=== PATIENT | female | born 1930 | race Caucasian/White ===

== ENCOUNTER 2016-04-01 16:32 | Emergency (ER) | payer OTHER ==
[2016-04-01 16:54] VITALS: BMI 33.5
--- NOTE | 2016-04-01 17:08 | PDOC ---
History of Present Illness - General History Source: Patient, EMS, Family Exam Limitations: No Limitations - History of Present Illness Initial Comments: 04/01/16 17:44 The patient is a 85 year old female brought via EMS and presenting with her family, with a significant past medical history of hypertension and alzhimers, who presents to the emergency department after a near syncope episode that occurred shortly before coming to the ED. The family states that the patient has also been experiencing diarrhea for the past couple of days. They note that the diarrhea is nonbloody in nature. The family notes that the patient was using the bathroom when she became lightheaded but did not loss consciousness. The family also notes that the patient had complained of abdominal pain prior to using the bathroom. During presentation the patient does not complaint of abdominal pain. The family reports that the patient has had contact with a couple of family members who have cold like symptoms. She denies numbness, tingling or weakness. The family also reports that the patient recently had a in the family and has been depressed. The patient denies chest pain, shortness of breath, headache and dizziness. Denies fever, chills, nausea, vomit and constipation. Denies dysuria, frequency , urgency and hematuria. Allergies: None Past surgical history: None reported Social history: No alcohol, tobacco or drug use reported <Ritchie Roberts - Last Filed: 04/01/16 18:14> - General History Source: Patient Exam Limitations: No Limitations <John Nance - Last Filed: 04/03/16 08:45> - General Chief Complaint: Syncope/Near Syncope Stated Complaint: SYNCOPE Time Seen by Provider: 04/01/16 16:37 Past History <Ritchie Roberts - Last Filed: 04/01/16 18:14> - Psycho/Social/Smoking Cessation Hx Suicidal Ideation: No Smoking History: Never smoked Drug/Substance Use Hx: No <John Nance - Last Filed: 04/03/16 08:45> - Past Medical History Allergies/Adverse Reactions: Allergies Allergy/AdvReac Type Severity Reaction Status Date / Time aspirin Allergy Verified 04/01/16 16:49 Home Medications: Ambulatory Orders Acetaminophen [Tylenol] 650 mg PO Q4H PRN #20 tablet 04/01/16 Amlodipine Besylate 5 mg PO ONCE 04/01/16 Furosemide 40 mg PO 04/01/16 Latanoprost 0.005 drop 04/01/16 Losartan Potassium 100 mg PO ONCE 04/01/16 Mag Hydrox/Al Hydrox/Simeth [Mylanta Suspension -] 30 ml PO Q6H PRN #1 bottle Meclizine HCl 25 mg PO PRN 04/01/16 Namenda Xr 14 mg PO ONCE 04/01/16 Nuedexta 20-10 mg Capsule 10 mg PO ONCE 04/01/16 Pravastatin Sodium 20 mg PO DAILY 04/01/16 Rivastigmine 04/01/16 Review of Systems - Review of Systems Able to Perform ROS?: Yes Comments:: 04/01/16 17:44 GENERAL/CONSTITUTIONAL: No fever or chills. No weakness. HEAD, EYES, EARS, NOSE AND THROAT: No change in vision. No ear pain or discharge. No sore throat. CARDIOVASCULAR: No chest pain or shortness of breath RESPIRATORY: No cough, wheezing, or hemoptysis. GASTROINTESTINAL: +Diarrhea. No nausea, vomiting, constipation. GENITOURINARY: No dysuria, frequency, or change in urination. MUSCULOSKELETAL: No joint or muscle swelling or pain. No neck or back pain. SKIN: No rash NEUROLOGIC: +Near syncope. No headache, vertigo, loss of consciousness, or change in strength/sensation. ENDOCRINE: No increased thirst. No abnormal weight change HEMATOLOGIC/LYMPHATIC: No anemia, easy bleeding, or history of blood clots. ALLERGIC/IMMUNOLOGIC: No hives or skin allergy. <Ritchie Roberts - Last Filed: 04/01/16 18:14> *Physical Exam - Vital Signs Last Vital Signs Temp Pulse Resp BP Pulse Ox 130/70 04/01/16 16:43 - Physical Exam Comments: 04/01/16 17:44 GENERAL: Awake, alert, in no acute distress HEAD: No signs of trauma, normocephalic, atraumatic EYES: PERRLA, EOMI, sclera anicteric, conjunctiva clear ENT: Auricles normal inspection, hearing grossly normal, nares patent, oropharynx clear without exudates. Moist mucosa NECK: Normal ROM, supple, no lymphadenopathy, JVD, or masses LUNGS: No distress, speaks full sentences, clear to auscultation bilaterally HEART: Regular rate and rhythm, normal S1 and S2, no murmurs, rubs or gallops, peripheral pulses normal and equal bilaterally. ABDOMEN: Soft, nontender, normoactive bowel sounds. No guarding, no rebound. No masses EXTREMITIES: Normal inspection, Normal range of motion, no edema. No clubbing or cyanosis. NEUROLOGICAL: Cranial nerves II through XII grossly intact. Normal speech, normal gait, no focal sensorimotor deficits SKIN: Warm, Dry, normal turgor, no rashes or lesions noted. <Ritchie Roberts - Last Filed: 04/01/16 18:14> - Vital Signs Last Vital Signs Temp Pulse Resp BP Pulse Ox 130/70 04/01/16 16:43 <John Nance - Last Filed: 04/03/16 08:45> Heart Score/ECG Review #1 ECG reviewed & interpreted by me at: 17:05 04/01/16 17:41 NSR 70 with 1st degree AV block, poor baseline V4-V5, no std/nael, occasioanl PVC , low voltage QRS, QTC 390 msec, no bruagda, no HOCM <John Nance - Last Filed: 04/03/16 08:45> ED Treatment Course - RADIOLOGY Radiograph Interpretation: 04/01/16 17:44 Chest X-Ray Reviewed by: Dr. Escobar Nolen Impression: No significant interval change or acute lung disease is present. <Ritchie Roberts - Last Filed: 04/01/16 18:14> - LABORATORY CBC & Chemistry Diagram: 04/01/16 19:25 04/01/16 21:40 - RADIOLOGY Radiology Studies Ordered: Category Date Time Status CHEST X-RAY PORTABLE* [RAD] Stat Radiology 04/01/16 17:00 Ordered <John Nance - Last Filed: 04/03/16 08:45> Medical Decision Making - Medical Decision Making 04/01/16 17:04 A portion of this note was written by my scribe, supervised by me. 85 year old female with past medical history of HTN, dementia presents with near syncope. Since yesterday, pt was feeling with flu-like symptoms. body aches , diarrhea, abdominal cramping. +sick contacts with family with similar symptoms. Was using toilet today to move bowels when she felt some abdominal cramping and felt lightheaded and nearly syncopized. Denies chest pain or SOB. Pt then returned back to baseline and denies any symptoms now. Denies traveling. I suspect that the patient likely had a combination of dehydration and vasovagal near syncope. Given age, will check ECG and labs including trop. Will give some IVF. Check UA. Will observe in ED. If patient remains asymptomatic and reports feeling well, will d/c with PMD follow up. 04/01/16 22:25 CBC, BMP 04/01/16 19:25 04/01/16 21:40 CMP Sodium 145 mmol/L (136-145) 04/01/16 21:40 Potassium 3.7 mmol/L (3.5-5.1) 04/01/16 21:40 Chloride 111 mmol/L (98-107) H 04/01/16 21:40 Carbon Dioxide 26 mmol/L (21-32) 04/01/16 21:40 Anion Gap 8 (8-16) 04/01/16 21:40 BUN 12 mg/dL (7-18) 04/01/16 21:40 Creatinine 1.6 mg/dL (0.55-1.02) H 04/01/16 21:40 Creat Clearance w eGFR 30.63 (>60) 04/01/16 21:40 Random Glucose 163 mg/dL (74-106) H D 04/01/16 21:40 Lactic Acid 1.780 mmol/L (0.4-2.0) 04/01/16 21:40 Calcium 8.8 mg/dL (8.5-10.1) 04/01/16 21:40 Total Bilirubin 0.2 mg/dL (0.2-1.0) D 04/01/16 21:40 AST 19 U/L (15-37) D 04/01/16 21:40 ALT 19 U/L (12-78) 04/01/16 21:40 Alkaline Phosphatase 136 U/L (45-117) H 04/01/16 21:40 Creatine Kinase 71 IU/L (26-192) 04/01/16 18:00 Troponin I < 0.02 ng/ml (0.00-0.05) 04/01/16 18:00 Total Protein 6.8 g/dl (6.4-8.2) 04/01/16 21:40 Albumin 3.4 g/dl (3.4-5.0) 04/01/16 21:40 Urine Test Results Urine Color Ltyellow 04/01/16 18:00 Urine Appearance Clear 04/01/16 18:00 Urine pH 6.0 (5.0-8.0) 04/01/16 18:00 Ur Specific [place] 1.011 (1.001-1.035) 04/01/16 18:00 Urine Protein Negative (NEGATIVE) 04/01/16 18:00 Urine Glucose (UA) Negative (NEGATIVE) 04/01/16 18:00 Urine Ketones Negative (NEGATIVE) 04/01/16 18:00 Urine Blood Negative (NEGATIVE) 04/01/16 18:00 Urine Nitrite Negative (NEGATIVE) 04/01/16 18:00 Urine Bilirubin Negative (NEGATIVE) 04/01/16 18:00 Ur Leukocyte Esterase Negative (NEGATIVE) 04/01/16 18:00 Bedside echocardiogram performed by fl demonstrates NO pericardial effusion. Pt's CMP was repeated twice. Creatinine was stable at 1.6. I had spoken with the patient's daughter fairly extensively. The patient was noted to have a persistently elevated creatinine. It is unclear if she has a history of chronic kidney disease. I initially had given 1.5 L of IV normal saline to see if this was prerenal. A repeat CMP and lactic acid was drawn. The lactic acid was normal but the creatinine remained persistent at 1.6. The patient was reassessed and she appears nontoxic, well, and tolerating quite a bit of oral fluids. I believe that the patient's near syncope is secondary to vasovagal and dehydration. I instructed the patient's daughter to bring the patient to Dr. Merrill's office tomorrow for the creatinine and for follow up. Return precautions given. They verbalize understanding and agrees with plan. <John Nance - Last Filed: 04/03/16 08:45> *DC/Admit/Observation/Transfer <Ritchie Roberts - Last Filed: 04/01/16 18:14> - Discharge Dispostion Admit: No <John Nance - Last Filed: 04/03/16 08:45> Diagnosis at time of Disposition: Dehydration Diarrhea Qualifiers: Diarrhea type: unspecified type Qualified Code(s): R19.7 - Diarrhea, unspecified - Discharge Dispostion Disposition: HOME Condition at time of disposition: Improved - Prescriptions Prescriptions: Mag Hydrox/Al Hydrox/Simeth [Mylanta Suspension -] 30 ml PO Q6H PRN #1 bottle PRN Reason: Abdominal Pain/Diarrhea Acetaminophen [Tylenol] 650 mg PO Q4H PRN #20 tablet PRN Reason: Pain - Referrals Referrals: Jaylen Merrill [Primary Care Provider] - - Patient Instructions Printed Discharge Instructions: DI for Dehydration -- Adult, Diarrhea, Chronic Renal Failure, What Can I Do About Kidney Disease? Additional Instructions: Bring a copy of the results to Dr. Merrill tomorrow. Your kidney function shows a Cr of 1.6, which may be chronic. Please drink plenty of fluids and rest. Take 650 mg tylenol every 4 hours as needed for fever. Take 30 cc of maalox every 6 hours as needed for abdominal pain/diarrhea. It may take several days before your symptoms improve. Print Language: BURKINAN
[2016-04-01] MEDS ORDERED: ACETAMINOPHEN 1000 MG/100 ML VIAL (NON FORMULARY) IVPB ONE (17:17)
[2016-04-01] MEDS ORDERED: SODIUM CHLORIDE 1,000 ML IV STA (17:17)
[2016-04-01] MEDS ORDERED: ACETAMINOPHEN INJECTION 100 ML IVPB ONE (17:24)
[2016-04-01 18:27] LABS: URINE APPEARANCE CLEAR; URINE BILIRUBIN NEGATIVE (NEGATIVE); URINE BLOOD NEGATIVE (NEGATIVE); URINE COLOR LTYELLOW; URINE GLUCOSE (UA) NEGATIVE (NEGATIVE); URINE KETONE NEGATIVE (NEGATIVE); URINE LEUK ESTERASE NEGATIVE (NEGATIVE); URINE NITRITE NEGATIVE (NEGATIVE); URINE PROTEIN NEGATIVE (NEGATIVE); URINE UROBILINOGEN NEGATIVE E.U./dl (0.2-1.0)
[2016-04-01 18:35] LABS: INR 1.01 (0.82-1.09); PROTHROMBIN TIME (PATIENT) 11.1 SEC (9.98-11.88)
[2016-04-01 18:38] LABS: ACTIVATED PTT 28.4 SECONDS (26.9-34.4)
[2016-04-01 18:55] LABS: ALBUMIN 4.1 g/dl (3.4-5.0); ANION GAP 9 (8-16); BILIRUBIN,TOTAL 0.5 mg/dL (0.2-1.0); CALCIUM 9.3 mg/dL (8.5-10.1); CO2 27 mmol/L (21-32); CREATININE 1.6 mg/dL (0.55-1.02); GLUCOSE,RANDOM 101 mg/dL (74-106); SGPT/ALT 22 U/L (12-78); TOT PROT 7.8 g/dl (6.4-8.2)
[2016-04-01 18:57] LABS: ALK PHOS 153 U/L (45-117); TROPONIN I < 0.02 ng/ml (0.00-0.05)
[2016-04-01 19:01] LABS: SGOT/AST 29 U/L (15-37)
[2016-04-01 19:34] LABS: BASOPHIL 0.8 % (0-2.0); EOSINOPHIL 0.6 % (0-4.5); MCH 31.7 pg (25.7-33.7); MCHC 32.5 g/dl (32.0-36.0); MEAN CELL VOLUME 97.7 fl (80-96); MEAN PLT VOLUME 10.4 fl (7.5-11.1); PLATELET COUNT 179 K/MM3 (134-434); RDW 14.7 % (11.6-15.6); WHITE BLOOD COUNT 8.5 K/mm3 (4.0-10.0)
[2016-04-01] MEDS ORDERED: SODIUM CHLORIDE 500 ML IV STA (19:39)
[2016-04-01 21:52] VITALS: BP 143/63; PULSE 80; TEMP 98.1
[2016-04-01 22:07] LABS: ALBUMIN 3.4 g/dl (3.4-5.0); BILIRUBIN,TOTAL 0.2 mg/dL (0.2-1.0); CALCIUM 8.8 mg/dL (8.5-10.1); CREATININE 1.6 mg/dL (0.55-1.02); TOT PROT 6.8 g/dl (6.4-8.2)
[2016-04-01] MEDS ORDERED: MAG HYDROX/AL HYDROX/SIMETH 30 ML UNIT-DOSE CUP PO ONE (22:24)
[2016-04-01] MEDS ORDERED: RANITIDINE HCL 150 MG TABLET (FP) PO ONE (22:25)
[2016-04-01] MEDS ORDERED: MAG HYDROX/AL HYDROX/SIMETH 30 ML UNIT-DOSE CUP ONE (22:27)
[2016-04-01] MEDS ORDERED: RANITIDINE HCL 150 MG TABLET (FP) ONE (22:27)
--- NOTE | 2016-04-02 17:32 | EKG ---
Test Reason : Blood Pressure : / mmHG Vent. Rate : 070 BPM Atrial Rate : 070 BPM P-R Int : 256 ms QRS Dur : 076 ms QT Int : 362 ms P-R-T Axes : 059 058 116 degrees QTc Int : 390 ms SINUS RHYTHM WITH 1ST DEGREE A-V BLOCK WITH OCCASIONAL PREMATURE VENTRICULAR COMPLEXES LOW VOLTAGE QRS CANNOT RULE OUT ANTERIOR INFARCT (CITED ON OR BEFORE 24-FEB-2008) T WAVE ABNORMALITY, CONSIDER LATERAL ISCHEMIA ABNORMAL ECG WHEN COMPARED WITH ECG OF 11-APR-2010 09:02, PREMATURE VENTRICULAR COMPLEXES ARE NOW PRESENT T WAVE INVERSION NOW EVIDENT IN ANTERIOR LEADS Confirmed by HESHAM BACON MD ([id number]) on 04/02/2016 5:31:55 PM Referred By: Confirmed By:HESHAM BACON MD
== END 2016-04-01 22:47 | disposition home or self-care (01) ==
LOC: JER 16:32
PROC: 3E033NZ Introduction of Analgesics, Hypnotics, Sedatives into Peripheral Vein, Percutaneous Approach (ICD-10-PCS; principal; 2016-04-01)
PROC: 3E0337Z Introduction of Electrolytic and Water Balance Substance into Peripheral Vein, Percutaneous Approach (ICD-10-PCS; 2016-04-01)
DX: E86.0 Dehydration (principal); R19.7 Diarrhea, unspecified; I10 Essential (primary) hypertension; G30.9 Alzheimer's disease, unspecified; F02.80 Dementia in other diseases classified elsewhere, unspecified severity, without behavioral disturbance, psychotic disturbance, mood disturbance, and anxiety
CPT/HCPCS: 36415; 71010-TC; 80053; 81003; 82550; 83605; 84484; 85025; 85610; 85730; 86850; 86900; 86901; 87040; 87086; 87186; 87804; 93005; 93010; 96361; 96374; 99282-25